=== PATIENT | male | born 1995 | race Caucasian/White ===

== ENCOUNTER 2016-11-16 22:46 | Emergency (ER) | payer OTHER ==
[2016-11-16 22:53] VITALS: BP 138/89; PULSE 88; RESP 18; TEMP 98.2; O2SAT 96
--- NOTE | 2016-11-16 23:02 | CPEKG ---
Heart Rate: 67 RR Interval: 896 P-R Interval: 148 QRSD Interval: 100 QT Interval: 408 QTC Interval: 431 P Milo: 44 QRS Milo: 80 T Wave Milo: 40 EKG Severity - OTHERWISE NORMAL ECG - EKG Impression: SINUS ARRHYTHMIA, RATE 57-80 Electronically Signed By: Moses Denis 17-Nov-2016 05:36:58
--- NOTE | 2016-11-16 23:20 | EDPHY ---
H & P Stated Complaint: chest pain sob l shldr started 2pm Time Seen by Provider: 11/16/16 23:03 HPI/ROS: Chief Complaint: Chest pain HPI: 21-year-old male started developing chest pain while taking a physical exam this afternoon. Pain at worst is a 2/10. Has a history of similar pain which he has attributed to reflux in the past. It is now a 1 to 0/10. He has some mild shortness of breath associated with this. No history of exertional chest pain. No fevers or chills. No cough. No nausea or vomiting. No leg pain or swelling. No risk factors for PE or DVT. Does not have a family history of coronary artery disease. No family history of sudden cardiac . ROS: 10 point Review of Systems is negative except as noted in the HPI. PMH: None Medications: None Allergies: No known drug allergies Social History: No smoking, occasional alcohol, no recreational drug use Family History: No family history of coronary disease or blood clots Physical Exam: Gen: Awake, Alert, No Distress HEENT: Nose: no rhinorrhea Eyes: PERRLA, EOMI Mouth: Moist mucosa Neck: Supple, no JVD Chest: nontender, lungs clear to auscultation Heart: S1, S2 normal, no murmur Abd: Soft, non-tender, no guarding Back: no CVA tenderness, no midline tenderness Ext: no edema, non-tender Skin: no rash Neuro: CN II-XII intact, Sensation grossly intact, Strength 5/5 in bilateral upper and lower extremities - Personal History Current Tetanus/Diphtheria Vaccine: Yes Current Tetanus Diphtheria and Acellular Pertussis (TDAP): Yes - Medical/Surgical History Hx Asthma: No Hx Chronic Respiratory Disease: No Hx Diabetes: No Hx Cardiac Disease: No Hx Renal Disease: No Hx Cirrhosis: No Hx Alcoholism: No Hx HIV/AIDS: No Hx Splenectomy or Spleen Trauma: No Other PMH: ADHD - Social History Smoking Status: Never smoked Constitutional: Initial Vital Signs Temperature (C) 36.8 C 11/16/16 22:49 Heart Rate 88 11/16/16 22:49 Respiratory Rate 18 11/16/16 22:49 Blood Pressure 138/89 H 11/16/16 22:49 O2 Sat (%) 96 11/16/16 22:49 O2 Delivery Mode Room Air Allergies/Adverse Reactions: No Known Allergies Allergy (Unverified 11/17/14 05:47) Home Medications: Medication Instructions Recorded NK [No Known Home Meds] 11/17/14 Medical Decision Making - Diagnostics EKG Interpretation: ECG time 11:00 p.m.. Sinus rhythm with a rate of 67, normal axis, normal intervals, no acute ST or T-wave changes. 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 He has no risk factors for coronary disease. He has a normal ECG here. There are no indications for blood testing at this time. He has been reassured. I will given referral for outpatient follow-up for any concerns. If his pain worsens has shortness of breath, syncope or any other symptoms to return for further evaluation. Departure - Departure Disposition: Home, Routine, Self-Care Clinical Impression: Atypical chest pain Condition: Good Instructions: Chest Pain (ED) Additional Instructions: Follow up with primary care physician for any concerns. Return emergency depart for worsening chest pain, shortness of breath, fainting , profuse sweating, or any other concerns. Referrals: Johny Merlos MD [Medical Doctor] - As per Instructions
== END 2016-11-16 23:24 | disposition home or self-care (01) ==
DX: R07.89 Other chest pain (principal)